=== PATIENT | male | born 1940 | race Caucasian/White ===

== ENCOUNTER 2019-02-01 22:46 | Observation (INO) ==
[2019-02-02] MEDS ORDERED: Naloxone 0.4 MG/ML INJ IVP PRN (05:04)
--- NOTE | 2019-02-02 05:49 | Internal Med History&Physical ---
Date of Encounter: 02/02/19 Time of Encounter: 04:20 Internal Medicine - H&P: HPI Chief complaint: Acute encephalopathy Admitted From: Hospital to Hospital Transfer Plans for Post Hospital Care: Home History of present illness: Mr. Ramachandran is a 78 year old male She presented to the emergency room for decreased responsiveness at home. According to ER documentation, patient was at home when he went to bed to take a nap. About an hour later his tried to wake him up but he was difficult to arouse. Ambulance was called and upon their arrival they noted decreased respirations and that the patient was very somnolent. He was given 0.5 mg of Narcan which improved his respiratory rate. He has a history of chronic back pain and has a pain pump. This had recently been filled about 3 days ago, but as far as the family knows there were no changes to his medications. He had similar presentation like this in the past with no definitive cause. He is in the emergency room patient's vital signs were within normal limits. He was satting at 95% on room air. Patient's CBC showed a white count of 3.2, hemoglobin of 11.7. Patient's BNP revealed a potassium of 3.2 but normal kidney function and normal blood sugar. Patient's lactic acid was 1.2 and magnesium was 1.8. Head CT was performed that showed no acute intracranial abnormalities, and chest x-ray was negative for acute pulmonary abnormalities. EKG showed normal sinus rhythm no acute ischemic changes. He was transferred to [facility] for further evaluation. Upon my assessment, patient is resting comfortably in the hospital bed. He awoke very easily to his name, and did not have any difficulty staying awake during my evaluation. He had no acute complaints, other than he needed to go to the bathroom. He denied chest pain, abdominal pain, nausea, vomiting, diarrhea and constipation. He had no shortness of breath, vision changes or headache. He was alert and oriented 3. He is a full code. Past Med Surg Social Fam HX - Past Medical History Medical history: arthritis, GERD, hypertension, other Additional medical history: Chronic Back Pain Psychiatric history: no psych history, other - Past Surgical History Surgical History: hip replacement, knee replacement, orthopedic, other, other Additional surgical history: Back surgery - Social History Smoking Status: Never smoker Smokeless Tobacco Status: Yes (chews) Alcohol use: none Drug use: none - Family History Father Family Member Ethnicity: Non- Living Status: Hx Family Respiratory Disorders: Yes Hx Family Cancer: Yes (Esophageal cancer) Hx Family GI Disorders: No Hx Family Endocrine Disorder: Yes Hx Family Neuromuscular Disorders: No Hx Family Neurologic Disorders: No Hx Family HEENT Disorders: No Hx Family Autoimmune Disorders: No Mother Living Status: Hx Family Cardiac Disorders: Yes (mother had a hole in the heart.) Brother Living Status: Hx Family Cancer: Yes (Lung cancer) Internal Medicine - H&P: Meds Pantoprazole Sodium [Protonix] 40 mg PO DAILY 01/25/16 [History] Diltiazem SR (12hr) [Cardizem SR] 60 mg PO QID 01/28/16 [History] Tamsulosin [Flomax] 0.4 mg PO DAILY capsule 02/02/16 [Rx] Ferrous Sulfate 325 mg PO DAILY 02/20/16 [History] Bupivacaine HCl/Pf [Bupivacaine 0.25% On-Q Pump] 100 ml IJ CONT 04/20/16 [History] Doxazosin [Cardura] 4 mg PO HS 04/20/16 [History] Morphine 5.2 mg .ROUTE CONT 04/20/16 [History] Ranitidine HCl [Heartburn Relief] 150 mg PO DAILY 08/30/17 [History] Allergy/AdvReac Type Severity Reaction Status Date / Time gabapentin Allergy SWELLING Verified 02/01/19 20:48 oxymorphone [From Opana] Allergy Gastrointestinal Verified 02/01/19 20:48 Upset pregabalin [From Lyrica] Allergy SWELLING Verified 02/01/19 20:48 fentanyl AdvReac Nausea Verified 02/01/19 20:48 meloxicam [From Mobic] AdvReac Nausea Verified 02/01/19 20:48 Oxaprozin [From Daypro] AdvReac Nausea Verified 02/01/19 20:48 oxycodone [From OxyContin] AdvReac Nausea Verified 02/01/19 20:48 All Systems PM: A 10-system review of systems was performed and is negative for pertinent findings except as documented above in the HPI. - Constitutional Vitals: Temp Pulse Resp BP Pulse Ox 98.0 F 88 18 162/77 94 02/02/19 04:41 02/02/19 04:41 02/02/19 04:41 02/02/19 01:12 02/02/19 04:41 General appearance: Present: cooperative, A&O X 3, pleasant, no acute distress, answers questions appropriately Exam: - - Head Head exam: Present: normal inspection - Eye Eye exam: Present: EOMI, normal appearance - Neck Neck exam general surgery: Present: full ROM - Respiratory Respiratory exam: Present: CTAB. Absent: rales, respiratory distress, rhonchi, wheezes - Cardiovascular Cardiovascular exam: Present: RRR. Absent: diastolic murmur, systolic murmur - GI/Abdominal GI/Abdominal exam: Present: normal bowel sounds, soft. Absent: tenderness - Extremities Exam Extremities exam: Present: warm, radial pulses palpable and symmetrical. Absent: calf tenderness, pedal edema, tenderness - Neurological Exam Neurological exam: Present: no focal deficits, strengths equal and symetr throughout. Absent: motor sensory deficit, facial droop, speech deficit - Skin Skin exam: Present: dry, normal color, warm - Assessment and Plan (1) Acute encephalopathy Current Visit: Yes Status: Acute Assessment and plan: Now improved, patient is awake alert and oriented 3. He is in no acute distress. He is not confused on my exam and was easy to arouse. Family was concerned that his pain pump was not functioning properly or that he was getting a higher dose than normal. Pain management consult in the morning Cardiac monitoring Pulse oximeter Oxygen supplementation as needed Consider further brain imaging if his alertness diminishes. (2) Chronic back pain Current Visit: No Status: Chronic Assessment and plan: Patient has a pain pump, which is managed by pain management. He recently had the reservoir refilled with morphine and bupivacaine. Pain management consultation to ensure pain pump is functioning properly Qualifiers: Back pain location: low back pain Back pain laterality: unspecified Sciatica presence: unspecified whether sciatica present Qualified Code(s): M54.5 - Low back pain; G89.29 - Other chronic pain (3) Diabetes mellitus Current Visit: No Status: Chronic Assessment and plan: Patient is not insulin-dependent diabetic. Monitor sugars with meals and at night Low-dose insulin sliding scale as needed Diabetic diet Qualifiers: Diabetes mellitus type: type 2 Diabetes mellitus senior care insulin use: without senior care use Diabetes mellitus complication status: without complication Qualified Code(s): E11.9 - Type 2 diabetes mellitus without complications (4) DVT prophylaxis Current Visit: No Status: Acute Assessment and plan: SCDs - Time Spent With Patient Total time spent is greater than 50% in coordination of care (as documented) at patient's floor/unit and/or counseling patient: Greater than 35 minutes
[2019-02-02] MEDS ORDERED: *HR* Dextrose 50 % in Water (Syg) 50 ML SYRINGE IVP PRN (06:36)
[2019-02-02] MEDS ORDERED: Dextrose Gel 15 GM/37.5 ML TUBE PO PRN ×2 (06:36)
[2019-02-02] MEDS ORDERED: Dextrose 4 GM Chewable Tablets PO PRN ×2 (06:36)
[2019-02-02] MEDS ORDERED: D5% in Water 1,000 ML IVC PRN (06:36)
[2019-02-02 06:53] LABS: Hematocrit 34.4 % (37.5-50.1); Hemoglobin 11.8 g/dL (12.9-16.9); Mean Corpuscular HGB Conc 34.3 g/dL (31.6-35.5); Mean Corpuscular Hemoglobin 30.5 pg (28.0-33.3); Mean Corpuscular Volume 88.9 fL (83.0-100.0); Mean Platelet Volume 9.6 fL (9.4-12.4); Platelet Count 195 K/mcL (140-400); Red Blood Count 3.87 M/mcL (4.19-5.50); Red Cell Distribution Width 12.7 % (11.5-14.5)
[2019-02-02 07:12] LABS: Alanine Aminotransferase 14 Units/L (7-52); Albumin 3.9 g/dL (3.5-5.7); Albumin/Globulin Ratio 2.1 (1.1-2.2); Alkaline Phosphatase 36 Units/L (34-104); Aspartate Amino Transferase 14 Units/L (13-39); BUN/Creatinine Ratio 16 (6-26); Bilirubin,Total 0.6 mg/dL (0.3-1.0); Blood Urea Nitrogen 15 mg/dL (8-23); Calcium 9.1 mg/dL (8.6-10.3); Carbon Dioxide 30 mEq/L (23-29); Chloride 99 mEq/L (98-107); Globulin 1.9 g/dL (2.4-3.5); Glucose 99 mg/dL (70-105); Osmolality,Calculated 283 (280-300); Potassium 3.7 mEq/L (3.5-5.1); Sodium 136 mEq/L (136-145); Total Protein 5.8 g/dL (6.4-8.9); Troponin I < 0.03 ng/mL (< 0.04); eGFR For Non-African Americans > 60 (> 60)
[2019-02-02] MEDS: Insulin LISPRO 300 UNITS/3 ML VIAL SQ SCH ×3 (08:02→16:07)
--- NOTE | 2019-02-02 10:58 | Event Note ---
Date of Encounter: 02/02/19 Time of Encounter: 10:56 Patient seen and examined at bedside. Patient states that he feels pretty good this morning. He states over the last several weeks he has had worsening pain and has felt more tired. Neuro: Alert and oriented 3, no acute distress. No focal deficits noted Assessment and plan Altered mental status: Resolved. Possibly due to implanted pain pump malfunctioning. Pain management consult pending. Narcan when necessary available for sedation/decreased respiratory rate
[2019-02-02] MEDS: BUPIVACAINE IT SCH (11:48)
[2019-02-02] MEDS: MORPHINE IT SCH (11:48)
[2019-02-02] MEDS: Acetaminophen 325 MG TABLET PO PRN (11:56)
--- NOTE | 2019-02-02 12:44 | Pain Management History & Phys ---
Date of Encounter: 02/02/19 Time of Encounter: 12:43 Assessment and Plan (1) Confusion Current Visit: No Status: Acute The assessment and plan as outlined above was discussed with the patient and/or family members who expressed understanding and agreement. All questions were answered. I had a long conversation with the family. We had a global discussion about the patient's progressive memory loss. While it is possible, it still potentially unlikely the patient is having acute episodes from the intrathecal drug delivery system given his long standing therapy with this device over several years. I did have a tino discussion with the family that there is possibility that we may be experiencing organic brain disease that could be worsened by any medication. He is also not getting any sleep and this could also worsen the situation. My recommendations are to comply with the family's wishes with respect to the intrathecal drug delivery system. I reached out to the pump nurse and will reduce the pain medication delivery by 20%. We will also gradually work to Deescalating the role of bupivacaine and the intrathecal drug delivery system over time. I did recommend getting a neurology involved. I am concerned that the patient is exhibiting signs of worsening dementia History of Present Illness Chief complaint: Mental status change HPI: Mr. Ramachandran is a 78 year old male Patient was at home this past few days and was reported "unresponsive" to his and his son. Patient was fast asleep and was not easily arousable. The patient states that he does not recall any of this. Patient states that he is having difficulty with his memory and cannot remember anything. The family and the son corroborates that they feel as though they are concerned as to whether or not the pump is involved. The son states that he thinks there is something more than just the pump involved. The patient states that he does not recall getting picked up by the ambulance and taken to the hospital. The supports most of the history which she states that patient has not been doing well for the last few years. They report that they have not reported to us in the clinic that the patient's gradually losing his memory. He intermittently has bouts of times where he is difficult to arouse from a deep sleep. There is no report of apnea or otherwise episodes associated with acute events. When he was picked up by the ambulance he was given Narcan but he did not respond to this. Past Med Surg Social Fam HX - Past Medical History Medical history: arthritis, GERD, hypertension, other Additional medical history: Chronic Back Pain Psychiatric history: no psych history, other - Past Surgical History Surgical History: hip replacement, knee replacement, orthopedic, other, other Additional surgical history: Back surgery - Social History Smoking Status: Never smoker Smokeless Tobacco Status: Yes (chews) Alcohol use: none Drug use: none - Family History Father Family Member Ethnicity: Non- Living Status: Hx Family Respiratory Disorders: Yes Hx Family Cancer: Yes (Esophageal cancer) Hx Family GI Disorders: No Hx Family Endocrine Disorder: Yes Hx Family Neuromuscular Disorders: No Hx Family Neurologic Disorders: No Hx Family HEENT Disorders: No Hx Family Autoimmune Disorders: No Mother Living Status: Hx Family Cardiac Disorders: Yes (mother had a hole in the heart.) Brother Living Status: Hx Family Cancer: Yes (Lung cancer) Medications and Allergies Pantoprazole Sodium [Protonix] 40 mg PO HS 01/25/16 [History] Tamsulosin [Flomax] 0.4 mg PO DAILY capsule 02/02/16 [Rx] Ferrous Sulfate 325 mg PO DAILY 02/20/16 [History] Bupivacaine HCl/Pf [Bupivacaine 0.25% On-Q Pump] 100 ml IJ CONT 04/20/16 [Histo ry] Doxazosin [Cardura] 4 mg PO HS 04/20/16 [History] Morphine 5.2 mg .ROUTE CONT 04/20/16 [History] Ranitidine HCl [Heartburn Relief] 150 mg PO DAILY 08/30/17 [History] Diltiazem SR (12hr) [Cardizem SR] 60 mg PO BID 02/02/19 [History] Escitalopram [Lexapro] 10 mg PO DAILY 02/02/19 [History] Fluticasone Propionate Nasal [Flonase] 1 spray NS DAILY 02/02/19 [History] Allergy/AdvReac Type Severity Reaction Status Date / Time gabapentin Allergy SWELLING Verified 02/01/19 20:48 oxymorphone [From Opana] Allergy Gastrointestinal Verified 02/01/19 20:48 Upset pregabalin [From Lyrica] Allergy SWELLING Verified 02/01/19 20:48 fentanyl AdvReac Nausea Verified 02/01/19 20:48 meloxicam [From Mobic] AdvReac Nausea Verified 02/01/19 20:48 Oxaprozin [From Daypro] AdvReac Nausea Verified 02/01/19 20:48 oxycodone [From OxyContin] AdvReac Nausea Verified 02/01/19 20:48 Review of Systems - Constitutional Constitutional ROS IM: as per HPI - Cardiovascular Cardiovascular ROS: no chest pain, no leg edema, no lightheadedness - Respiratory Respiratory: no pain on inspiration, no pain with cough - Gastrointestinal Gastrointestinal: no abdominal pain, no constipation, no diarrhea, no heartburn - Genitourinary Genitourinary ROS: no difficulty urinating, no flank pain, no urinary hesitancy - Musculoskeletal Musculoskeletal ROS: abnormal gait, muscle weakness - Neurological Neurological ROS: as per HPI - Psychiatric Psychiatric general: confusion - Hematologic/Lymphatic Hematologic/Lymphatic pediatric: no easy bleeding, no easy bruising Physical Exam Initial Vital Signs Temp Pulse Resp BP Pulse Ox 98.2 F 64 16 162/77 95 02/02/19 01:12 02/02/19 01:12 02/02/19 01:12 02/02/19 01:12 02/02/19 01:12 - General physical appearance General physical appearance: awake & oriented, no pain - Eyes Eye exam: normal ocular movement - Neck trachea midline - Respiratory normal respiratory effort - Abdomen Abdomen: soft, non tender, bowel sounds - Integumentary Integumentary general surgery: no rash - Neurologic confused, memory loss - Musculoskeletal Musculoskeletal: kyphosis - Psychiatric Psychiatric: depression - Additional Findings Points on the Mini-Mental status exam were performed. Patient short-term memory appears impaired. Was not able to remember a short phrase. Short-term history was cloudy. Asked the patient to draw a clock stating 9:00 with the appropriate numbers and he was unable to. Results - Labs 02/02/19 05:36 02/02/19 05:36 Abnormal lab results RBC 3.87 M/mcL (4.19-5.50) L 02/02/19 05:36 Hgb 11.8 g/dL (12.9-16.9) L 02/02/19 05:36 Hct 34.4 % (37.5-50.1) L 02/02/19 05:36 Carbon Dioxide 30 mEq/L (23-29) H 02/02/19 05:36 Serum Total Protein 5.8 g/dL (6.4-8.9) L 02/02/19 05:36 Globulin 1.9 g/dL (2.4-3.5) L 02/02/19 05:36 Diabetes panel 02/02/19 Range/Units 05:36 Sodium 136 (136-145) mEq/L Potassium 3.7 (3.5-5.1) mEq/L Chloride 99 (98-107) mEq/L Carbon Dioxide 30 H (23-29) mEq/L BUN 15 (8-23) mg/dL Creatinine 0.95 (0.70-1.30) mg/dL Glucose 99 (70-105) mg/dL Calcium 9.1 (8.6-10.3) mg/dL AST 14 (13-39) Units/L ALT 14 (7-52) Units/L Alkaline Phosphatase 36 (34-104) Units/L Albumin 3.9 (3.5-5.7) g/dL Calcium panel 02/02/19 Range/Units 05:36 Calcium 9.1 (8.6-10.3) mg/dL Albumin 3.9 (3.5-5.7) g/dL Pituitary panel 02/02/19 Range/Units 05:36 Sodium 136 (136-145) mEq/L Potassium 3.7 (3.5-5.1) mEq/L Chloride 99 (98-107) mEq/L Carbon Dioxide 30 H (23-29) mEq/L BUN 15 (8-23) mg/dL Creatinine 0.95 (0.70-1.30) mg/dL Glucose 99 (70-105) mg/dL Calcium 9.1 (8.6-10.3) mg/dL Adrenal panel 02/02/19 Range/Units 05:36 Sodium 136 (136-145) mEq/L Potassium 3.7 (3.5-5.1) mEq/L Chloride 99 (98-107) mEq/L Carbon Dioxide 30 H (23-29) mEq/L BUN 15 (8-23) mg/dL Creatinine 0.95 (0.70-1.30) mg/dL Glucose 99 (70-105) mg/dL Calcium 9.1 (8.6-10.3) mg/dL Total Bilirubin 0.6 (0.3-1.0) mg/dL AST 14 (13-39) Units/L ALT 14 (7-52) Units/L Alkaline Phosphatase 36 (34-104) Units/L Albumin 3.9 (3.5-5.7) g/dL All other labs normal.
[2019-02-02] MEDS ORDERED: Insulin LISPRO 300 UNITS/3 ML VIAL SQ SCH (21:00)
[2019-02-02] MEDS: Diltiazem SR (12hr) 60 MG CAPSULE PO SCH (21:01)
[2019-02-03 02:03] LABS: Basophils % 0.2 %; Eosinophils # 0.1 K/mcL (0.0-0.6); Eosinophils % 0.7 %; Hematocrit 35.4 % (37.5-50.1); Hemoglobin 12.3 g/dL (12.9-16.9); Immature Granulocytes % 0.4 % (0-4); Lymphocytes % 12.5 %; Mean Corpuscular HGB Conc 34.7 g/dL (31.6-35.5); Mean Corpuscular Hemoglobin 30.3 pg (28.0-33.3); Mean Corpuscular Volume 87.2 fL (83.0-100.0); Mean Platelet Volume 9.3 fL (9.4-12.4); Monocytes # 0.6 K/mcL (0.0-1.3); Monocytes % 7.2 %; Neutrophils # 6.3 K/mcL (1.6-8.9); Platelet Count 207 K/mcL (140-400); Red Blood Count 4.06 M/mcL (4.19-5.50); Red Cell Distribution Width 12.3 % (11.5-14.5)
[2019-02-03 02:27] LABS: BUN/Creatinine Ratio 18 (6-26); Blood Urea Nitrogen 15 mg/dL (8-23); Calcium 9.3 mg/dL (8.6-10.3); Carbon Dioxide 26 mEq/L (23-29); Chloride 98 mEq/L (98-107); Glucose 95 mg/dL (70-105); Magnesium 1.8 mg/dL (1.6-2.6); Osmolality,Calculated 281 (280-300); Potassium 3.6 mEq/L (3.5-5.1); Sodium 135 mEq/L (136-145); eGFR For Non-African Americans > 60 (> 60)
[2019-02-03] MEDS: Acetaminophen 325 MG TABLET PO PRN (04:43)
--- NOTE | 2019-02-03 09:47 | Neurology - Consult Note ---
Date of Encounter: 02/03/19 Time of Encounter: 09:38 Assessment and Plan (1) Increased sleeping Current Visit: Yes Status: Acute 78-year-old male with a past medical history of chronic pain using a pain pump who presented to the ED due to difficulty waking from sleep. Family believed this to be secondary to pain medication and the pain pump. Family and patient believe he has been sleeping more. Patient believes this is going on for 2 weeks. No history of MICHAELA. Patient reports he does not snore. Dr. Brock the pain management physician reduced pain medication by 20% per family request. No history of recent fall or head trauma. No family history of Alzheimer's or dementia. Patient goes to bed 12-1AM in his chair in silence and wakes up at 6- 9AM. He does not fall asleep when talking to people or at inappropriate times. -Etiology may be secondary to MICHAELA, older age, poor sleep hygiene, chronic pain, depression, medication side effect, central sleep apnea, hypersomnolence syndrome, indogenous such as narcolepsy. -Head CT negative for intracranial abnormality Recommendations: The patient has many potential etiologies for his increased sleepiness. This is in the setting of a chronic back pain using a pain pump. Differential as above. Would recommend that the patient have an out patient sleep study to further evaluate. History of Present Illness Chief complaint: Acute encephalopathy HPI: Mr. Ramachandran is a 78 year old male with past medical history of hypertension, chronic back pain using an intrathecal drug delivery system (pain pump), Gerd who presented to [facility] as a transfer due to acute encephalopathy on 02/02/2019. Neurology was consulted on 02/03/2019 for lethargy/fatigue. His clinical course has been such that initially his vitals/ labs/ imaging were unremarkable besides mild hypokalemia noted. Head CT was negative for acute intracranial abnormality. Blood cultures are negative thus far. Pain management physician Dr. Brock evaluated the patient and do not believe that the pain pump is the etiology for the patient's increased lethargy and difficulty waking. However, he did decrease the patient's pain medication regimen by 20% at the family's request. Upon my examination of the patient is alert and oriented times 3 and there are no family members of the better. The patient reported that his family members had a difficult time waking them up from sleeping in his chair for which EMS was called and had administered narcan. He stated he does not remember waking up but does remember some of the ambulance ride and the ED. Per medical reports it was noted that he had decreased respirations and after Narcan is respirations improved some. Family also reports the patient has been more forgetful in his memory has slowly declined. He stated he is not been sick recently. He did admit to sleeping more for the past 2 to 3 weeks. He denied fever, chills, headache, neck pain, change in vision, chest pain, palpitations, shortness of breath, recent fall/trauma. The patient reported that he goes to sleep between 12 o'clock to 1 AM. He wakes up between 6-9AM. He sleep in his chair when going to bed in silence. He will sometimes fall asleep in his chair during the day time. He does not fall asleep when talking to people or at inappropriate times. He stated that he does not snore at bed time or have been diagnosed with MICHAELA. He denied any family history of dementia or Alzheimer's. He denies cigarette smoking, drug use, alcohol use. Past Med Surg Social Fam HX - Past Medical History Attestation: Yes The following information was validated with the patient. Source: patient Medical history: arthritis, GERD, hypertension, other Additional medical history: Chronic Back Pain Psychiatric history: no psych history, other - Past Surgical History Surgical History: hip replacement, knee replacement, orthopedic, other, other Additional surgical history: Back surgery - Social History Smoking Status: Never smoker Smokeless Tobacco Status: Yes (chews) Alcohol use: none Drug use: none - Family History Father Family Member Ethnicity: Non- Living Status: Hx Family Respiratory Disorders: Yes Hx Family Cancer: Yes (Esophageal cancer) Hx Family GI Disorders: No Hx Family Endocrine Disorder: Yes Hx Family Neuromuscular Disorders: No Hx Family Neurologic Disorders: No Hx Family HEENT Disorders: No Hx Family Autoimmune Disorders: No Mother Living Status: Hx Family Cardiac Disorders: Yes (mother had a hole in the heart.) Brother Living Status: Hx Family Cancer: Yes (Lung cancer) Medications and Allergies Pantoprazole Sodium [Protonix] 40 mg PO HS 01/25/16 [History] Tamsulosin [Flomax] 0.4 mg PO DAILY capsule 02/02/16 [Rx] Ferrous Sulfate 325 mg PO DAILY 02/20/16 [History] Bupivacaine HCl/Pf [Bupivacaine 0.25% On-Q Pump] 100 ml IJ CONT 04/20/16 [History] Doxazosin [Cardura] 4 mg PO HS 04/20/16 [History] Morphine 5.2 mg .ROUTE CONT 04/20/16 [History] Ranitidine HCl [Heartburn Relief] 150 mg PO DAILY 08/30/17 [History] Diltiazem SR (12hr) [Cardizem SR] 60 mg PO BID 02/02/19 [History] Escitalopram [Lexapro] 10 mg PO DAILY 02/02/19 [History] Fluticasone Propionate Nasal [Flonase] 1 spray NS DAILY 02/02/19 [History] Allergy/AdvReac Type Severity Reaction Status Date / Time gabapentin Allergy SWELLING Verified 02/01/19 20:48 oxymorphone [From Opana] Allergy Gastrointestinal Verified 02/01/19 20:48 Upset pregabalin [From Lyrica] Allergy SWELLING Verified 02/01/19 20:48 fentanyl AdvReac Nausea Verified 02/01/19 20:48 meloxicam [From Mobic] AdvReac Nausea Verified 02/01/19 20:48 Oxaprozin [From Daypro] AdvReac Nausea Verified 02/01/19 20:48 oxycodone [From OxyContin] AdvReac Nausea Verified 02/01/19 20:48 All Systems: The remainder of the systems were reviewed and are negative - Constitutional Constitutional ROS IM: daytime sleepiness, fatigue, no chills, no fever(s), no frequent falls, no headache(s), no snoring, no weakness - Nose, Mouth, Throat Nose, mouth and throat: no dizziness, no vertigo - Cardiovascular Cardiovascular ROS IM: no chest pain, no dyspnea, no irregular heart rhythm, no palpitations - Respiratory Respiratory IM: no cough, no dyspnea, no wheezing - Gastrointestinal Gastrointestinal: no abdominal pain, no diarrhea, no nausea, no vomiting - Musculoskeletal Musculoskeletal ROS IM: back pain, no neck pain - Integumentary Integumentary IM: no new lesions, no non-healing lesions, no skin ulcer - Neurological Neurological ROS: no abnormal gait, no disequilibrium, no focal weakness, no frequent falls, no headache(s) Physical Examination - Vital Signs Vital Signs: Initial Vital Signs Temp Pulse Resp BP Pulse Ox 98.2 F 64 16 162/77 95 02/02/19 01:12 02/02/19 01:12 02/02/19 01:12 02/02/19 01:12 02/02/19 01:12 - Exam Exam: Gen.: Vitals noted. No acute distress. AAOx3 Cardiac: RRR, no murmur, +S1/S2 Pulmonary: CTA bilaterally, no wheezes, rales or rhonchi, equal chest expansion musculoskeletal: *MUSCLE STRENGTH IN THE UPPER AND LOWER EXTREMITIES the patient has free movement and 5/5 strength of the biceps, triceps, and brachial radialis, lamp inspector strength, and lower extremities symmetrically. *MUSCLE TONE IN THE UPPER AND LOWER EXTREMITIES normal. No abnormal movements, fasciculations or atrophy identified. Neurological: *ORIENTATION to person, place, time. *LANGUAGE FUNCTION no aphasia or dysarthia *MENTAL no significant impairment of attention span *CN III,IV, PERRL extraocular eye movements were full, no nystagmus and no ptosis noted. *CN V shows normal sensation and jaw opens symmetrically. *CN VII shows normal facial movement symmetrically, upper and lower bilaterally. *CN VIII shows some but not significant hearing loss *CN IX,,X palate elevated symmetrically *CN XI normal strength in the sternocleidomastoid muscles, symmetrical shoulder shrugging. Results - Laboratory Findings CBC and BMP: 02/03/19 01:46 02/03/19 01:46 Abnormal lab findings: Abnormal lab results RBC 4.06 M/mcL (4.19-5.50) L 02/03/19 01:46 Hgb 12.3 g/dL (12.9-16.9) L 02/03/19 01:46 Hct 35.4 % (37.5-50.1) L 02/03/19 01:46 MPV 9.3 fL (9.4-12.4) L 02/03/19 01:46 Sodium 135 mEq/L (136-145) L 02/03/19 01:46 Serum Total Protein 5.8 g/dL (6.4-8.9) L 02/02/19 05:36 Globulin 1.9 g/dL (2.4-3.5) L 02/02/19 05:36 Consult Discharge Plan - Plan Referrals: Lauren Nielsen CNP [Advanced Practice Nurse] - 02/17/19 11:00 am
[2019-02-03] MEDS: Famotidine 20 MG TABLET PO SCH (10:10)
[2019-02-03] MEDS: Diltiazem SR (12hr) 60 MG CAPSULE PO SCH ×2 (10:10→21:00)
[2019-02-03] MEDS: BUPIVACAINE IT SCH (12:07)
[2019-02-03] MEDS: MORPHINE IT SCH (12:07)
[2019-02-03] MEDS ORDERED: amLODIPine 5 MG TABLET PO SCH (12:15)
--- NOTE | 2019-02-03 12:16 | Internal Med Progress Note ---
Hospitalist Progress Note - Encounter Date of Encounter: 02/03/19 Time of Encounter: 12:13 - Subjective Interval History: Patient seen and examined at bedside. Patient states that he feels okay today. Continues to feel fatigued. He does complain of bilateral shoulder pain with weakness. Denies fever, chills. - Exam Vitals: Temp Pulse Resp BP Pulse Ox 98.0 F 72 14 188/73 97 02/03/19 10:38 02/03/19 10:38 02/03/19 10:38 02/03/19 10:38 02/03/19 10:38 Exam: Gen.: Alert and oriented 3, appears somewhat lethargic Heart: Regular rate and rhythm, no murmurs, rubs, gallops Lungs: Clear to auscultation bilaterally, no rales, wheezes Extremities/muscle skeletal: 4/5 muscle strength with upper extremity abduction bilaterally. No deformity noted. - Assessment and Plan (1) Acute encephalopathy Current Visit: Yes Status: Acute Assessment and Plan: Patient presented with lethargy and increased somnolence as well as difficulties arise. Patient has been easily arousable and alert and oriented but somewhat lethargic since presentation. Etiology unclear. Family is convinced that is related to the medicine he receives through his pain pump. Dr. Brock with pain management is following and will decrease dose by 20%. Other metabolic causes have been ruled out including infection, elevated ammonia. Neurology is being consulted, may be related to poor sleep hygiene were obstructive sleep apnea. We will recommend outpatient sleep study. PT/OT consult. (2) Hypertension Current Visit: No Status: Chronic Assessment and Plan: Blood pressure elevated. Continue home Cardizem and start lisinopril 20 mg daily (3) Chronic back pain Current Visit: No Status: Chronic Assessment and Plan: With pain pump with morphine and bupivacaine present. Dr. Albert outpatient we will decrease dose by 20% (4) Shoulder pain Current Visit: Yes Status: Acute Assessment and Plan: Patient had bilateral shoulder pain with weakness. Initially concern for PMR but ESR is 2 making this very less likely. We will consult PT/OT. No deformity noted however if pain persists will consider x-ray. - Time Spent with Patient Total time spent is greater than 50% in coordination of care (as documented) at patient's floor/unit and/or counseling patient: Internal Medicine: Result - Labs CBC & Chem 7: 02/03/19 01:46 02/03/19 01:46 Labs: Short CBC 02/03/19 Range/Units 01:46 WBC 8.0 D (4.3-11.1) K/mcL Hgb 12.3 L (12.9-16.9) g/dL Hct 35.4 L (37.5-50.1) % Plt Count 207 (140-400) K/mcL Neutrophils # 6.3 (1.6-8.9) K/mcL BMP 02/03/19 01:46 Sodium 135 L Potassium 3.6 Chloride 98 Carbon Dioxide 26 BUN 15 Creatinine 0.83 Glucose 95 Calcium 9.3 Consult Discharge Plan - Plan Referrals: Lauren Nielsen, SURVEILLANCE DIRECTOR [Advanced Practice Nurse] - 02/17/19 11:00 am (2) Hypertension Qualifiers: Qualified Code(s): I10 - Essential (primary) hypertension (3) Chronic back pain Qualifiers: Back pain location: low back pain Back pain laterality: unspecified Sciatica presence: unspecified whether sciatica present Qualified Code(s): M54.5 - Low back pain; G89.29 - Other chronic pain (4) Shoulder pain Qualifiers: Chronicity: chronic Laterality: bilateral Qualified Code(s): M25.511 - Pain in right shoulder; M25.512 - Pain in left shoulder; G89.29 - Other chronic pain
[2019-02-03] MEDS: Lisinopril 20 MG TABLET PO SCH (13:34)
[2019-02-03] MEDS: Acetaminophen 325 MG TABLET PO SCH ×2 (17:35→23:12)
[2019-02-04] MEDS: Acetaminophen 325 MG TABLET PO SCH ×3 (05:03→16:44)
[2019-02-04 08:42] LABS: Basophils % 0.5 %; Eosinophils # 0.1 K/mcL (0.0-0.6); Eosinophils % 1.8 %; Hematocrit 32.9 % (37.5-50.1); Hemoglobin 11.5 g/dL (12.9-16.9); Immature Granulocytes % 0.3 % (0-4); Lymphocytes % 16.2 %; Mean Corpuscular Hemoglobin 30.6 pg (28.0-33.3); Mean Corpuscular Volume 87.5 fL (83.0-100.0); Mean Platelet Volume 9.7 fL (9.4-12.4); Monocytes # 0.5 K/mcL (0.0-1.3); Monocytes % 8.5 %; Neutrophils # 4.4 K/mcL (1.6-8.9); Platelet Count 190 K/mcL (140-400); Red Blood Count 3.76 M/mcL (4.19-5.50); Red Cell Distribution Width 12.8 % (11.5-14.5); Segmented Neutrophils % 72.7 %
[2019-02-04] MEDS: Diltiazem SR (12hr) 60 MG CAPSULE PO SCH (08:52)
[2019-02-04] MEDS: Lisinopril 20 MG TABLET PO SCH (08:53)
[2019-02-04] MEDS: Famotidine 20 MG TABLET PO SCH (08:53)
[2019-02-04] MEDS ORDERED: Fluticasone Propionate Nasal 50 MCG/SPRAY BOTTLE NS SCH (09:00)
[2019-02-04 09:04] LABS: BUN/Creatinine Ratio 20 (6-26); Blood Urea Nitrogen 20 mg/dL (8-23); Calcium 9.2 mg/dL (8.6-10.3); Carbon Dioxide 28 mEq/L (23-29); Chloride 97 mEq/L (98-107); Glucose 102 mg/dL (70-105); Osmolality,Calculated 277 (280-300); Potassium 3.6 mEq/L (3.5-5.1); Sodium 132 mEq/L (136-145); eGFR For Non-African Americans > 60 (> 60)
[2019-02-04 10:20] LABS: Folate > 22.3 ng/mL (3.0-16.0); Vitamin B12 425 pg/mL (250-1100)
[2019-02-04] MEDS: BUPIVACAINE IT SCH (12:12)
[2019-02-04] MEDS: MORPHINE IT SCH (12:12)
[2019-02-04] MEDS ORDERED: Ringers Solution, Lactated 1,000 ML IVC SCH (15:00)
[2019-02-04 15:20] VITALS: BP 111/65
--- NOTE | 2019-02-04 15:52 | Discharge Summary ---
- NOTES TO OUTPATIENT PROVIDER Notes to Outpatient Provider: Patient was admitted for increasing somnolence which likely multifactorial: pain meds (on intrathecal morphine pump), undiagnosed MICHAELA, ?early dementia as there is also a history of progressive memory loss over the past 2 years. TSH normal on 11/2018, B12/folate unremarkable. CT head -ve for chronic subdural. Medication through the pump was decreased by 20% per Pain management. Seen by Neurology who also agree with undiagnosed MICHAELA as a possibility. No evidence of infection identified. Will arrange for outpatient sleep study and pt will need to follow up with Neurology/PCP for a formal diagnosis of dementia. Will empirically start on Aricept for now. 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 Date of Encounter: 02/04/19 Time of Encounter: 15:00 - Discharge Diagnosis (1) Chronic back pain Priority: Secondary Status: Chronic Qualifiers: Back pain location: low back pain Back pain laterality: unspecified Sciatica presence: unspecified whether sciatica present Qualified Code(s): M54.5 - Low back pain; G89.29 - Other chronic pain (2) Acute encephalopathy Priority: Primary Status: Acute (3) Shoulder pain Priority: Secondary Status: Acute Qualifiers: Chronicity: chronic Laterality: bilateral Qualified Code(s): M25.511 - Pain in right shoulder; M25.512 - Pain in left shoulder; G89.29 - Other chronic pain Hospital course: Mr. Ramachandran is a 78 year old male with history of HTN and chronic LBP on intrathecal pump, who was admitted for increasing somnolence. Likely multifactorial: pain meds (on intrathecal morphine pump), undiagnosed MICHAELA, ?early dementia as there is also a history of progressive memory loss over the past 2 years. TSH normal on 11/2018, B12/folate unremarkable. CT head -ve for chronic subdural. Medication through the pump was decreased by 20% per Pain management. Seen by Neurology who also agree with undiagnosed MICHAELA as a possibility. No evidence of infection identified. Will arrange for outpatient sleep study and pt will need to follow up with Neurology/PCP for a formal diagnosis of dementia. Will empirically start on Aricept for now. 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 Discharge discussed with: patient, family, nurse, social work, case management - Time Spent with Patient Total time spent providing and/or coordinating discharge services: 40 mins - Discharge Medications Prescriptions: New Donepezil [Aricept] 5 mg PO HS #30 tablet Continue Pantoprazole Sodium [Protonix] 40 mg PO HS Ferrous Sulfate 325 mg PO DAILY Diltiazem SR (12hr) [Cardizem SR] 60 mg PO BID Escitalopram [Lexapro] 10 mg PO DAILY Fluticasone Propionate Nasal [Flonase] 1 spray NS DAILY Tamsulosin [Flomax] 0.4 mg PO DAILY capsule Morphine 5.2 mg .ROUTE CONT Doxazosin [Cardura] 4 mg PO HS Bupivacaine HCl/Pf [Bupivacaine 0.25% On-Q Pump] 100 ml IJ CONT Ranitidine HCl [Heartburn Relief] 150 mg PO DAILY Home Medications: Pantoprazole Sodium [Protonix] 40 mg PO HS 01/25/16 [History] Tamsulosin [Flomax] 0.4 mg PO DAILY capsule 02/02/16 [Rx] Ferrous Sulfate 325 mg PO DAILY 02/20/16 [History] Bupivacaine HCl/Pf [Bupivacaine 0.25% On-Q Pump] 100 ml IJ CONT 04/20/16 [History] Doxazosin [Cardura] 4 mg PO HS 04/20/16 [History] Morphine 5.2 mg .ROUTE CONT 04/20/16 [History] Ranitidine HCl [Heartburn Relief] 150 mg PO DAILY 08/30/17 [History] Diltiazem SR (12hr) [Cardizem SR] 60 mg PO BID 02/02/19 [History] Escitalopram [Lexapro] 10 mg PO DAILY 02/02/19 [History] Fluticasone Propionate Nasal [Flonase] 1 spray NS DAILY 02/02/19 [History] Donepezil [Aricept] 5 mg PO HS #30 tablet 02/04/19 [Rx] Allergies/Adverse Reactions: Allergy/AdvReac Type Severity Reaction Status Date / Time gabapentin Allergy SWELLING Verified 02/01/19 20:48 oxymorphone [From Opana] Allergy Gastrointestinal Verified 02/01/19 20:48 Upset pregabalin [From Lyrica] Allergy SWELLING Verified 02/01/19 20:48 fentanyl AdvReac Nausea Verified 02/01/19 20:48 meloxicam [From Mobic] AdvReac Nausea Verified 02/01/19 20:48 Oxaprozin [From Daypro] AdvReac Nausea Verified 02/01/19 20:48 oxycodone [From OxyContin] AdvReac Nausea Verified 02/01/19 20:48 Date of admission: 02/02/19 00:09 Primary care physician: PCP NONE Consults: 02/02/19 05:08 Consult to Pain Management [CONS] Routine Consulting Provider: [facility] Reason for Consult: Increased somnolence, history of pain pump Call Completed: No 02/02/19 16:32 Consult to Neurology [CONS] Routine Consulting Provider: Neurology [facility] Reason for Consult: Lethagy/fatigue Call Completed: Yes 02/03/19 09:40 Consult to Occupational Therapy [CONS] Routine Comment: Evaluate, develop and implement POC Reason for Consult: Weakness Does patient have active BEDREST order?: No Is patient medically & hemodynamically stable?: Yes Consult to Physical Therapy [CONS] Routine Comment: Evaluate, develop and implement POC Reason for Consult: Weakness Does patient have active BEDREST order?: No Is patient medically & hemodynamically stable?: Yes - Constitutional Vitals: Temp Pulse Resp BP Pulse Ox 98.2 F 68 15 111/65 96 02/04/19 15:16 02/04/19 15:16 02/04/19 15:16 02/04/19 15:16 02/04/19 15:16 General appearance: Present: cooperative, A&O X 3, pleasant, no acute distress, answers questions appropriately Exam: Gen.: Alert and oriented 3, not in distress Heart: Regular rate and rhythm, no murmurs, rubs, gallops Lungs: Clear to auscultation bilaterally, no rales, wheezes Extremities: No deformities or joint effusion Psych: appropriate mood - Patient Status Disposition: Home Health Service Condition: Fair Functional capacity at discharge: independent ambulation Overall status at discharge: patient is progressing back to baseline - Discharge Instructions Follow Up With: Lauren Nielsen CNP [Advanced Practice Nurse] - 02/17/19 11:00 am Hilario Kohler MD [Partnered Physician] - Additional Instructions: Outpatient sleep study Will also need hearing aid started on Aricept for possible early dementia. Follow up with Neurology/PCP for a formal diagnosis of dementia as there is only a suspicion for now Consider starting ASA/statin for remote R cerebellar infarct seen on MRI dated 01/2016 - Diet and Activity Activity: resume usual activities as tolerated Diet: regular diet
--- NOTE | 2019-02-04 15:59 | Physician Discharge Referral ---
Home Health/Hosp Referral Info Transfer to: Home Health Provider in Charge Post Discharge: PCP - Diagnosis (1) Chronic back pain Priority: Secondary Status: Chronic (2) Acute encephalopathy Priority: Primary Status: Acute (3) Shoulder pain Priority: Secondary Status: Acute - Respiratory Orders Smoking Cessation: Smoking cessation has been advised. For more information, call the [place] Tobacco Quit Line at 8-898-HMKP-NOW. - Diet/Nutrition Diet/Nutrition Orders: Regular - Services Needed Following services are medically necessary services: Nursing, Physical Therapy, Occupational Therapy - Transfer Medications Prescriptions: Donepezil [Aricept] 5 mg PO HS #30 tablet Home Medications: Pantoprazole Sodium [Protonix] 40 mg PO HS 01/25/16 [History] Tamsulosin [Flomax] 0.4 mg PO DAILY capsule 02/02/16 [Rx] Ferrous Sulfate 325 mg PO DAILY 02/20/16 [History] Bupivacaine HCl/Pf [Bupivacaine 0.25% On-Q Pump] 100 ml IJ CONT 04/20/16 [History] Doxazosin [Cardura] 4 mg PO HS 04/20/16 [History] Morphine 5.2 mg .ROUTE CONT 04/20/16 [History] Ranitidine HCl [Heartburn Relief] 150 mg PO DAILY 08/30/17 [History] Diltiazem SR (12hr) [Cardizem SR] 60 mg PO BID 02/02/19 [History] Escitalopram [Lexapro] 10 mg PO DAILY 02/02/19 [History] Fluticasone Propionate Nasal [Flonase] 1 spray NS DAILY 02/02/19 [History] Donepezil [Aricept] 5 mg PO HS #30 tablet 02/04/19 [Rx] Allergies/Adverse Reactions: Allergy/AdvReac Type Severity Reaction Status Date / Time gabapentin Allergy SWELLING Verified 02/01/19 20:48 oxymorphone [From Opana] Allergy Gastrointestinal Verified 02/01/19 20:48 Upset pregabalin [From Lyrica] Allergy SWELLING Verified 02/01/19 20:48 fentanyl AdvReac Nausea Verified 02/01/19 20:48 meloxicam [From Mobic] AdvReac Nausea Verified 02/01/19 20:48 Oxaprozin [From Daypro] AdvReac Nausea Verified 02/01/19 20:48 oxycodone [From OxyContin] AdvReac Nausea Verified 02/01/19 20:48 Certification: Further, I certify that my clinical findings support that this patient is homebound (i.e. absences from home require considerable and taxing effort and are for medical reasons or jew services or infrequently or short duration when for other reasons) because: Homebound Reason: Patient requires assistance of a person or device to safely leave home Attestation: My signature below is to certify that this patient is under my care and that I, or nurse practitioner, or a physician's administration assistant working with me, has a [id number] encounter with this patient.
== END 2019-02-04 17:11 | disposition home health service (06) ==
LOC: 3ANU → SUATTDRO 02-02 00:09
PROVIDERS: ADMIT Family Medicine; ATTEND Internal Medicine

== ENCOUNTER 2020-09-29 19:04 | Inpatient (IN) ==
[2020-09-29] MEDS ORDERED: Naloxone 0.4 MG/ML INJ IVP PRN (21:55)
[2020-09-29] MEDS ORDERED: Ondansetron 4 MG/2 ML VIAL IVP PRN (21:55)
[2020-09-29] MEDS ORDERED: Ringers Solution, Lactated 1,000 ML IVC SCH (22:00)
[2020-09-29] MEDS ORDERED: Ipratropium/Albuterol Neb 3 ML IH PRN (22:04)
[2020-09-29 22:45] LABS: BUN/Creatinine Ratio 25 (6-26); Blood Urea Nitrogen 28 mg/dL (8-23); Calcium 8.1 mg/dL (8.6-10.3); Carbon Dioxide 28 mEq/L (23-29); Chloride 107 mEq/L (98-107); Glucose 123 mg/dL (70-105); Osmolality,Calculated 299 (280-300); Potassium 3.6 mEq/L (3.5-5.1); Sodium 141 mEq/L (136-145); eGFR For African Americans > 60 (> 60); eGFR For Non-African Americans > 60 (> 60)
[2020-09-29] MEDS ORDERED: Isovue-370 500 ML BOTTLE IVP ONE (22:59)
[2020-09-30] MEDS: Ampicillin/Sulbactam 1,500 MG in 0.9 % Sodium Chloride Mini Bag 100 ML IVPB SCH ×5 (00:20→20:58)
[2020-09-30] MEDS: *HR* Enoxaparin 100 MG/ML SYRINGE SQ SCH ×2 (00:21→05:35)
[2020-09-30 06:57] LABS: Basophils % 0.1 %; Eosinophils % 0.1 %; Hematocrit 31.1 % (37.5-50.1); Hemoglobin 10.1 g/dL (12.9-16.9); Immature Granulocytes % 0.6 % (0-4); Lymphocytes % 7.4 %; Mean Corpuscular HGB Conc 32.5 g/dL (31.6-35.5); Mean Corpuscular Hemoglobin 30.1 pg (28.0-33.3); Mean Corpuscular Volume 92.8 fL (83.0-100.0); Mean Platelet Volume 10.3 fL (9.4-12.4); Monocytes # 0.5 K/mcL (0.0-1.3); Monocytes % 3.7 %; Neutrophils # 11.8 K/mcL (1.6-8.9); Platelet Count 167 K/mcL (140-400); Red Blood Count 3.35 M/mcL (4.19-5.50); Red Cell Distribution Width 13.5 % (11.5-14.5); Segmented Neutrophils % 88.1 %; White Blood Count 13.4 K/mcL (4.3-11.1)
[2020-09-30 07:30] LABS: Magnesium 1.9 mg/dL (1.6-2.6); Phosphorous 2.3 mg/dL (2.7-4.5); Troponin I 0.04 ng/mL (< 0.04)
[2020-09-30] MEDS ORDERED: PAIN PUMP IT PRN (13:57)
[2020-09-30] MEDS: DilTIAZem SR (12hr) 60 MG CAP.ER.12H PO SCH (20:58)
[2020-10-01] MEDS: Ampicillin/Sulbactam 1,500 MG in 0.9 % Sodium Chloride Mini Bag 100 ML IVPB SCH ×4 (04:29→21:11)
[2020-10-01] MEDS ORDERED: *HR* Enoxaparin 40 MG/0.4 ML SYRINGE SQ SCH (06:00)
[2020-10-01 09:14] LABS: BUN/Creatinine Ratio 28 (6-26); Basophils % 0.2 %; Blood Urea Nitrogen 26 mg/dL (8-23); Calcium 8.7 mg/dL (8.6-10.3); Carbon Dioxide 27 mEq/L (23-29); Chloride 105 mEq/L (98-107); Eosinophils # 0.2 K/mcL (0.0-0.6); Eosinophils % 1.5 %; Glucose 98 mg/dL (70-105); Hematocrit 29.5 % (37.5-50.1); Hemoglobin 9.5 g/dL (12.9-16.9); Immature Granulocytes % 0.7 % (0-4); Lymphocytes # 0.7 K/mcL (0.6-4.6); Magnesium 1.9 mg/dL (1.6-2.6); Mean Corpuscular HGB Conc 32.2 g/dL (31.6-35.5); Mean Corpuscular Hemoglobin 30.4 pg (28.0-33.3); Mean Corpuscular Volume 94.6 fL (83.0-100.0); Mean Platelet Volume 10.5 fL (9.4-12.4); Monocytes # 0.5 K/mcL (0.0-1.3); Monocytes % 4.4 %; Osmolality,Calculated 295 (280-300); Phosphorous 2.1 mg/dL (2.7-4.5); Platelet Count 158 K/mcL (140-400); Potassium 3.4 mEq/L (3.5-5.1); Red Blood Count 3.12 M/mcL (4.19-5.50); Red Cell Distribution Width 13.3 % (11.5-14.5); Segmented Neutrophils % 86.2 %; Sodium 140 mEq/L (136-145); White Blood Count 10.4 K/mcL (4.3-11.1); eGFR For African Americans > 60 (> 60); eGFR For Non-African Americans > 60 (> 60)
[2020-10-01] MEDS: Lactobacillus 1 EACH CAP.SPRINK PO SCH ×2 (10:05→21:11)
[2020-10-01] MEDS: DilTIAZem SR (12hr) 60 MG CAP.ER.12H PO SCH ×2 (10:05→21:11)
[2020-10-02] MEDS: Ampicillin/Sulbactam 1,500 MG in 0.9 % Sodium Chloride Mini Bag 100 ML IVPB SCH ×4 (04:54→21:14)
[2020-10-02 07:22] LABS: Basophils % 0.2 %; Eosinophils # 0.2 K/mcL (0.0-0.6); Eosinophils % 2.3 %; Hematocrit 29.6 % (37.5-50.1); Hemoglobin 9.6 g/dL (12.9-16.9); Immature Granulocytes % 0.7 % (0-4); Lymphocytes # 0.7 K/mcL (0.6-4.6); Lymphocytes % 7.7 %; Mean Corpuscular HGB Conc 32.4 g/dL (31.6-35.5); Mean Corpuscular Hemoglobin 29.6 pg (28.0-33.3); Mean Corpuscular Volume 91.4 fL (83.0-100.0); Mean Platelet Volume 10.5 fL (9.4-12.4); Monocytes # 0.5 K/mcL (0.0-1.3); Monocytes % 6.1 %; Neutrophils # 7.3 K/mcL (1.6-8.9); Platelet Count 175 K/mcL (140-400); Red Blood Count 3.24 M/mcL (4.19-5.50); Red Cell Distribution Width 12.9 % (11.5-14.5); White Blood Count 8.8 K/mcL (4.3-11.1)
[2020-10-02 07:42] LABS: BUN/Creatinine Ratio 25 (6-26); Blood Urea Nitrogen 22 mg/dL (8-23); Calcium 8.5 mg/dL (8.6-10.3); Carbon Dioxide 29 mEq/L (23-29); Chloride 105 mEq/L (98-107); Glucose 109 mg/dL (70-105); Magnesium 1.8 mg/dL (1.6-2.6); Osmolality,Calculated 294 (280-300); Phosphorous 2.3 mg/dL (2.7-4.5); Potassium 3.3 mEq/L (3.5-5.1); Sodium 140 mEq/L (136-145); eGFR For African Americans > 60 (> 60); eGFR For Non-African Americans > 60 (> 60)
[2020-10-02] MEDS: Lactobacillus 1 EACH CAP.SPRINK PO SCH ×2 (10:38→21:14)
[2020-10-02] MEDS: DilTIAZem SR (12hr) 60 MG CAP.ER.12H PO SCH ×2 (10:38→21:14)
[2020-10-03] MEDS: Ampicillin/Sulbactam 1,500 MG in 0.9 % Sodium Chloride Mini Bag 100 ML IVPB SCH ×2 (05:11→09:41)
[2020-10-03 06:01] LABS: Basophils % 0.2 %; Eosinophils # 0.2 K/mcL (0.0-0.6); Eosinophils % 2.6 %; Hematocrit 32.6 % (37.5-50.1); Hemoglobin 10.5 g/dL (12.9-16.9); Immature Granulocytes % 0.6 % (0-4); Lymphocytes % 11.7 %; Mean Corpuscular HGB Conc 32.2 g/dL (31.6-35.5); Mean Corpuscular Hemoglobin 29.2 pg (28.0-33.3); Mean Corpuscular Volume 90.8 fL (83.0-100.0); Mean Platelet Volume 10.2 fL (9.4-12.4); Monocytes # 0.6 K/mcL (0.0-1.3); Monocytes % 7.3 %; Neutrophils # 6.8 K/mcL (1.6-8.9); Platelet Count 199 K/mcL (140-400); Red Blood Count 3.59 M/mcL (4.19-5.50); Red Cell Distribution Width 12.7 % (11.5-14.5); Segmented Neutrophils % 77.6 %; White Blood Count 8.7 K/mcL (4.3-11.1)
[2020-10-03 06:20] LABS: BUN/Creatinine Ratio 22 (6-26); Blood Urea Nitrogen 20 mg/dL (8-23); Calcium 8.6 mg/dL (8.6-10.3); Carbon Dioxide 28 mEq/L (23-29); Chloride 103 mEq/L (98-107); Glucose 112 mg/dL (70-105); Magnesium 1.9 mg/dL (1.6-2.6); Osmolality,Calculated 289 (280-300); Phosphorous 2.4 mg/dL (2.7-4.5); Potassium 3.4 mEq/L (3.5-5.1); Sodium 138 mEq/L (136-145); eGFR For African Americans > 60 (> 60); eGFR For Non-African Americans > 60 (> 60)
[2020-10-03] MEDS: DilTIAZem SR (12hr) 60 MG CAP.ER.12H PO SCH ×2 (09:41→21:51)
[2020-10-03] MEDS: Lactobacillus 1 EACH CAP.SPRINK PO SCH ×2 (09:41→21:50)
[2020-10-04 08:41] LABS: Basophils % 0.3 %; Eosinophils # 0.2 K/mcL (0.0-0.6); Eosinophils % 3.4 %; Hematocrit 29.5 % (37.5-50.1); Hemoglobin 9.7 g/dL (12.9-16.9); Immature Granulocytes % 0.7 % (0-4); Lymphocytes # 0.8 K/mcL (0.6-4.6); Lymphocytes % 11.5 %; Mean Corpuscular HGB Conc 32.9 g/dL (31.6-35.5); Mean Corpuscular Hemoglobin 29.6 pg (28.0-33.3); Mean Corpuscular Volume 89.9 fL (83.0-100.0); Mean Platelet Volume 10.2 fL (9.4-12.4); Monocytes # 0.6 K/mcL (0.0-1.3); Monocytes % 9.3 %; Neutrophils # 5.1 K/mcL (1.6-8.9); Platelet Count 192 K/mcL (140-400); Red Blood Count 3.28 M/mcL (4.19-5.50); Red Cell Distribution Width 12.7 % (11.5-14.5); Segmented Neutrophils % 74.8 %; White Blood Count 6.8 K/mcL (4.3-11.1)
[2020-10-04] MEDS: lisinopriL 10 MG TABLET PO SCH (08:45)
[2020-10-04] MEDS: Lactobacillus 1 EACH CAP.SPRINK PO SCH ×2 (08:46→20:14)
[2020-10-04] MEDS: DilTIAZem SR (12hr) 60 MG CAP.ER.12H PO SCH ×2 (08:46→20:15)
[2020-10-04 09:05] LABS: BUN/Creatinine Ratio 21 (6-26); Blood Urea Nitrogen 16 mg/dL (8-23); Calcium 8.5 mg/dL (8.6-10.3); Carbon Dioxide 29 mEq/L (23-29); Chloride 105 mEq/L (98-107); Glucose 103 mg/dL (70-105); Osmolality,Calculated 289 (280-300); Potassium 3.7 mEq/L (3.5-5.1); Sodium 139 mEq/L (136-145); eGFR For African Americans > 60 (> 60); eGFR For Non-African Americans > 60 (> 60)
[2020-10-05 06:45] LABS: Basophils % 0.3 %; Eosinophils # 0.2 K/mcL (0.0-0.6); Eosinophils % 3.8 %; Hematocrit 28.3 % (37.5-50.1); Hemoglobin 9.3 g/dL (12.9-16.9); Lymphocytes # 0.8 K/mcL (0.6-4.6); Lymphocytes % 13.8 %; Mean Corpuscular HGB Conc 32.9 g/dL (31.6-35.5); Mean Corpuscular Hemoglobin 29.7 pg (28.0-33.3); Mean Corpuscular Volume 90.4 fL (83.0-100.0); Monocytes # 0.6 K/mcL (0.0-1.3); Monocytes % 10.3 %; Neutrophils # 4.3 K/mcL (1.6-8.9); Platelet Count 217 K/mcL (140-400); Red Blood Count 3.13 M/mcL (4.19-5.50); Red Cell Distribution Width 12.8 % (11.5-14.5); Segmented Neutrophils % 70.8 %; White Blood Count 6.1 K/mcL (4.3-11.1)
[2020-10-05 07:03] LABS: BUN/Creatinine Ratio 19 (6-26); Blood Urea Nitrogen 18 mg/dL (8-23); Calcium 8.4 mg/dL (8.6-10.3); Carbon Dioxide 29 mEq/L (23-29); Chloride 105 mEq/L (98-107); Glucose 104 mg/dL (70-105); Magnesium 1.9 mg/dL (1.6-2.6); Osmolality,Calculated 290 (280-300); Phosphorous 2.9 mg/dL (2.7-4.5); Potassium 3.6 mEq/L (3.5-5.1); Sodium 139 mEq/L (136-145); eGFR For African Americans > 60 (> 60); eGFR For Non-African Americans > 60 (> 60)
[2020-10-05] MEDS: DilTIAZem SR (12hr) 60 MG CAP.ER.12H PO SCH (10:22)
[2020-10-05] MEDS: Lactobacillus 1 EACH CAP.SPRINK PO SCH (10:22)
[2020-10-05] MEDS: lisinopriL 10 MG TABLET PO SCH (10:22)
[2020-10-05 17:27] LABS: Adenovirus Not Detected (Not Detect); Bordetella Pertussis Not Detected (Not Detect); Chlamydophila pneumoniae Not Detected (Not Detect); Coronavirus 229E Not Detected (Not Detect); Coronavirus HKU1 Not Detected (Not Detect); Coronavirus NL63 Not Detected (Not Detect); Coronavirus OC43 Not Detected (Not Detect); Human Metapneumovirus Not Detected (Not Detect); Human Rhinovirus/Enterovirus Not Detected (Not Detect); Influenza A Subtype 2009 H1 Not Detected (Not Detect); Influenza B Not Detected (Not Detect); Mycoplasma pneumoniae Not Detected (Not Detect); Parainfluenza Virus 1 Not Detected (Not Detect); Parainfluenza Virus 2 Not Detected (Not Detect); Parainfluenza Virus 3 Not Detected (Not Detect); Parainfluenza Virus 4 Not Detected (Not Detect); Respiratory Syncytial Virus Not Detected (Not Detect); SARS-CoV-2 Not Detected (Not Detect)
[2020-10-05 19:30] VITALS: BP 152/63
== END 2020-10-05 19:41 | disposition other institution (70) | DRG 177 ==
LOC: 3ANU → SUATTDRO 10-01 18:21
PROVIDERS: ADMIT Family Medicine; ATTEND Internal Medicine